=== PATIENT | female | born 1945 | race Asian ===

== ENCOUNTER 2025-02-14 03:16 | Emergency (ER) | payer MEDICARE ==
[~2025-02-14] VITALS: Ht 152.4 cm; Wt 49.0 kg
[2025-02-14 04:22] LABS: PLATELET COUNT (AUTO) 396 K/uL (150-450); RED BLOOD CELL COUNT(AUTO) 3.68 MIL/uL (4.0-5.2); RED CELL DISTRIBUTION WIDTH 14.2 % (11.5-15.0); WHITE BLOOD COUNT (AUTO) 5.8 K/uL (4.3-11.0)
[2025-02-14 04:34] LABS: CALCIUM, SERUM 9.3 mg/dL (8.5-10.1); CREATININE 0.9 mg/dL (0.6-1.3); SODIUM SERUM 140 mmol/L (136-145); UREA NITROGEN, BLOOD 19 mg/dL (7-18)
[2025-02-14 04:47] VITALS: BP 118/63; TEMP 98; O2SAT 98
== END 2025-02-14 04:47 | disposition left against medical advice (07) ==
LOC: ER 03:24
DX: M54.12 Radiculopathy, cervical region (principal); R07.89 Other chest pain
CPT/HCPCS: 36415; 80048-TC; 84484-TC; 85025-TC